=== PATIENT | male | born 1970 | race American Indian/Alaskan Native ===

== ENCOUNTER 2018-12-14 13:10 | Emergency (ER) | payer OTHER ==
--- NOTE | 2018-12-14 13:55 | Emergency Department Report ---
Chief Complaint: Fall Stated Complaint: FEET PAIN Time Seen by Provider: 12/14/18 13:53 - HPI History of Present Illness: pt presents with right foot pain and left heel pain three days ago edema of the right foot states he fell down the steps inside the house able to ambulate afterwards, does have pain with weight bearing no previous injury able to move all digits no numbness, no weakness been taking advil no PMHx no medications on a daily basis no drug allergies (+) marijuana (+) drinker no cigarettes MSE screening note: Focused history and physical exam performed. Due to findings the following was ordered: XR right foot and left foot ED Disposition for MSE Condition: Stable
--- NOTE | 2018-12-14 15:16 | XRay Report ---
BILATERAL FEET, 3 VIEWS History: Fall, left heel pain. Findings: Only 3 images of the right foot are presented which demonstrate comminuted fractures of the fourth and fifth metatarsals. The remaining bony structures of the right foot are intact. No joint pathology is appreciated. Impression: Comminuted fractures of of right metatarsals 4 and 5.
[2018-12-14] MEDS ORDERED: NORCO 5/325 PO ONE (16:03)
--- NOTE | 2018-12-14 16:03 | Emergency Department Report ---
HPI - General Chief Complaint: Fall Time Seen by Provider: 12/14/18 13:53 - HPI HPI: 48-year-old -[place] male pt reports he tripped fell down 12 steps at home x3 days ago and injured Rt foot pain, and Lt. heel after fall. denies any head injury. denies any LOC. reports pain w/ weight bearing activity, and Rt foot swelling ED Past Medical Hx - Past Medical History Hx Hypertension: Yes Hx GERD: Yes - Surgical History Past Surgical History?: No - Social History Smoking Status: Never Smoker Substance Use Type: Marijuana - Medications Home Medications: Home Medications Medication Instructions Recorded Confirmed Last Taken Type HYDROcodone/ACETAMINOPHEN 1 each PO Q6H PRN 07/11/18 07/11/18 Unknown History [Hydrocodone-Acetamin 5-325 mg] Tizanidine HCl [Zanaflex] 4 mg PO Q8H 07/11/18 07/11/18 Unknown History amLODIPine [Norvasc] 5 mg PO DAILY 07/11/18 07/11/18 Unknown History Gabapentin [Neurontin] 300 mg PO Q8HR #45 capsule 07/14/18 Unknown Rx Pantoprazole [Protonix TAB] 40 mg PO QDAY #14 tablet 07/14/18 Unknown Rx Cyclobenzaprine [Flexeril 10 MG 10 mg PO TID PRN #14 tablet 12/14/18 Unknown Rx TAB] ED Review of Systems ROS: Stated complaint: FEET PAIN Other details as noted in HPI Comment: All other systems reviewed and negative Constitutional: denies: see HPI, chills Eyes: denies: eye pain ENT: denies: ear pain, throat pain Respiratory: denies: see HPI, cough, orthopnea Cardiovascular: denies: chest pain, palpitations, dyspnea on exertion Endocrine: denies: excessive sweating Gastrointestinal: denies: abdominal pain, nausea, vomiting Musculoskeletal: joint swelling, arthralgia, myalgia Skin: denies: rash Physical Exam - Physical Exam Vital Signs: Vital Signs 12/14/18 14:12 Temperature 98.5 F Pulse Rate 102 H Respiratory 16 Rate Blood Pressure 155/80 O2 Sat by Pulse 99 Oximetry Physical Exam: Physical Exam: - General Limitations: No Limitations General appearance: alert, in no apparent distress, obese - Head Head exam: Present: atraumatic, normocephalic - Eye Eye exam: Present: normal appearance - ENT ENT exam: Present: mucous membranes moist - Neck Neck exam: Present: normal inspection - Respiratory Respiratory exam: Present: normal lung sounds bilaterally. Absent: respiratory distress - Cardiovascular Cardiovascular Exam: Present: normal rhythM. Absent: systolic murmur, diastolic murmur, rubs, gallop - GI/Abdominal GI/Abdominal exam: Present: soft, normal bowel sounds - Extremities Exam Extremities exam: Present: Bilateral feet tenderness, worse on the right. - Back Exam Back exam: Present: normal inspection - Neurological Exam Neurological exam: Present: alert, oriented X3 - Psychiatric Psychiatric exam: normal affect and mood - Skin Skin exam: Present: warm, dry, intact, normal color. Absent: rash ED Course Vital Signs 12/14/18 14:12 Temperature 98.5 F Pulse Rate 102 H Respiratory 16 Rate Blood Pressure 155/80 O2 Sat by Pulse 99 Oximetry ED Medical Decision Making - Medical Decision Making Right foot fractures, no signs of compartment syndrome, advised to follow-up with both Critical care attestation.: If time is entered above; I have spent that time in minutes in the direct care of this critically ill patient, excluding procedure time. ED Disposition Clinical Impression: Foot fracture, right Qualifiers: Encounter type: initial encounter Fracture type: closed Qualified Code(s): S92.901A - Unspecified fracture of right foot, initial encounter for closed fracture Disposition: - TO HOME OR SELFCARE Is pt being admited?: No Does the pt Need Aspirin: No Condition: Stable Instructions: Foot Fracture in Adults (ED) Prescriptions: Cyclobenzaprine [Flexeril 10 MG TAB] 10 mg PO TID PRN #14 tablet PRN Reason: Muscle Spasm Referrals: YENNY MORENO MD [Staff Physician] - 3-5 Days [place] U[facility] GALLOWAY MD [Primary Care Provider] - 3-5 Days Forms: Work/School Release Form(ED)
[2018-12-15 19:09] VITALS: BP 155/80
== END 2018-12-14 16:16 | disposition home or self-care (01) ==
LOC: ED 13:10
DX: M79.671 Pain in right foot (principal)

== ENCOUNTER 2020-10-05 10:52 | Emergency (ER) | payer SELFPAY ==
--- NOTE | 2020-10-05 11:05 | Event Note ---
ED Screening Note Date of service: 10/05/20 Time: 11:05 ED Screening Note: Pleasant 50-year-old male presents emerged department chief complaint of right upper quadrant pain over the past week. This initial assessment/diagnostic orders/clinical plan/treatment(s) is/are subject to change based on patients health status, clinical progression and re- assessment by fellow clinical providers in the ED. Further treatment and workup at subsequent clinical providers discretion. Patient/guardian urged not to elope from the ED as their condition may be serious if not clinically assessed and managed. Initial orders include: CBC, CMP, lipase, urinalysis
[2020-10-05 11:26] LABS: Basophils % (Auto) 0.9 % (0.0-1.8); Eosinophils # (Auto) 0.1 K/mm3 (0.0-0.4); Eosinophils % (Auto) 2.8 % (0.0-4.3); Hematocrit 46.6 % (35.5-45.6); Hemoglobin 15.1 gm/dl (11.8-15.2); Lymphocytes # (Auto) 1.4 K/mm3 (1.2-5.4); Lymphocytes % (Auto) 45.4 % (13.4-35.0); Mean Corpuscular HGB Conc 32 % (32-34); Mean Corpuscular Volume 84 fl (84-94); Monocytes # (Auto) 0.4 K/mm3 (0.0-0.8); Monocytes % (Auto) 12.2 % (0.0-7.3); Platelet Count 236 K/mm3 (140-440); Red Blood Count 5.57 M/mm3 (3.65-5.03)
[2020-10-05 12:39] LABS: Alanine Aminotransferase 18 units/L (7-56); BUN/Creatinine Ratio 14; Blood Urea Nitrogen 13 mg/dL (9-20); Calcium 9.6 mg/dL (8.4-10.2); Hemolysis Index 11
[2020-10-05 12:43] LABS: Bilirubin,Direct < 0.2 mg/dL (0-0.2)
[2020-10-05] MEDS ORDERED: ACETAMINOPHEN 325 MG TAB PO ONE (13:17)
[2020-10-05] MEDS ORDERED: FAMOTIDINE 20 MG TAB PO ONE (13:17)
--- NOTE | 2020-10-05 13:18 | Emergency Department Report ---
ED General Adult HPI - General Chief complaint: Abdominal Pain Stated complaint: RT SIDE PAIN PUI?: No Time Seen by Provider: 10/05/20 12:50 Source: patient, RN notes reviewed, old records reviewed Mode of arrival: Ambulatory Limitations: No Limitations - History of Present Illness Initial comments: The patient was evaluated in the emergency department for symptoms described in the history of present illness. He/she was evaluated in the context of the global COVID-19 pandemic, which necessitated consideration that the patient might be at risk for infection with the virus that causes COVID-19. Institutional protocols and algorithms that pertain to the evaluation of patients at risk for COVID-19 are in a state of rapid change based on information released by regulatory bodies including the CDC and federal and state organizations. These policies and algorithms were followed during the patient's care in the emergency department. Please note that these policies, procedures and recommendations changed on a rapid basis. The patient is a 50-year-old gentleman. He is not known to myself previously. He does not have a local primary care doctor. He cannot recall who his oncologist, and urologist are. He has a history of prostate cancer, reportedly cured with radiation therapy 3 years ago, and hypertension. He otherwise denies a history of abdominal surgery. Patient presents to the ER with 1 week of intermittent right upper quadrant abdominal pain. The pain increases with palpation. It does not radiate anywhere. It is not associated with food. No nausea, vomiting, chest pain or shortness of breath. No surgery, leg pain, leg swelling, DVT or pulmonary embolism risk factors. No loss of taste or smell. No urinary symptoms. No cough, loss of taste or smell. No exertional shortness of breath. The pain is not pleuritic. The pain increases with palpation. His pain is intermittent, sometimes gets very intense, and other times becomes mild. He currently rates his pain as a 5 out of 10. He indicates he is fairly comfortable at this time. Patient indicates he is recently modified his diet, to avoid consumption of fatty foods, and he indicates that he is "drinking a lot of water, and eating a lot of vegetables." -: Gradual, days(s) Location: abdomen Radiation: non-radiation Quality: aching Consistency: intermittent, other (As per history of present illness) Improves with: other (Per history of present illness) Worsens with: other (Per history of present illness) - Related Data Home Medications Medication Instructions Recorded Confirmed Last Taken amLODIPine 5 mg PO DAILY 07/11/18 07/11/18 Unknown Previous Rx's Medication Instructions Recorded Last Taken Type Gabapentin 300 mg PO Q8HR #45 capsule 07/14/18 Unknown Rx Pantoprazole [Protonix TAB] 40 mg PO QDAY #14 tablet 07/14/18 Unknown Rx Acetaminophen [Non-Aspirin Extra 500 mg PO Q6HR PRN #30 tablet 10/05/20 Unknown Rx Strength] Pantoprazole [Protonix TAB] 20 mg PO QDAY #30 tablet. 10/05/20 Unknown Rx Allergies Allergy/AdvReac Type Severity Reaction Status Date / Time No Known Allergies Allergy Verified 07/11/18 11:37 ED Review of Systems ROS: Stated complaint: RT SIDE PAIN Other details as noted in HPI Constitutional: denies: fever Eyes: denies: eye discharge, vision change ENT: denies: epistaxis Respiratory: denies: cough, shortness of breath Cardiovascular: denies: chest pain Gastrointestinal: denies: vomiting Genitourinary: denies: dysuria Musculoskeletal: denies: back pain Neurological: denies: weakness Hematological/Lymphatic: denies: easy bleeding ED Past Medical Hx - Past Medical History Hx Hypertension: Yes Hx GERD: Yes Hx of Cancer: Yes (Prostate) - Social History Smoking Status: Never Smoker Substance Use Type: Marijuana - Medications Home Medications: Home Medications Medication Instructions Recorded Confirmed Last Taken Type amLODIPine 5 mg PO DAILY 07/11/18 07/11/18 Unknown History Gabapentin 300 mg PO Q8HR #45 capsule 07/14/18 Unknown Rx Pantoprazole [Protonix TAB] 40 mg PO QDAY #14 tablet 07/14/18 Unknown Rx Acetaminophen [Non-Aspirin Extra 500 mg PO Q6HR PRN #30 tablet 10/05/20 Unknown Rx Strength] Pantoprazole [Protonix TAB] 20 mg PO QDAY #30 tablet. 10/05/20 Unknown Rx ED Physical Exam - General Limitations: No Limitations General appearance: alert, in no apparent distress - Head Head exam: Present: atraumatic, normocephalic - Eye Eye exam: Present: normal appearance, EOMI. Absent: nystagmus - ENT ENT exam: Present: normal exam, normal orophraynx, mucous membranes moist, normal external ear exam - Neck Neck exam: Present: normal inspection, full ROM. Absent: tenderness, mening ismus - Respiratory Respiratory exam: Present: normal lung sounds bilaterally. Absent: respiratory distress, wheezes, rales, rhonchi, stridor, decreased breath sounds - Cardiovascular Cardiovascular Exam: Present: regular rate, normal rhythm, normal heart sounds. Absent: bradycardia, tachycardia, irregular rhythm, systolic murmur, diastolic murmur, rubs, gallop - GI/Abdominal GI/Abdominal exam: Present: soft, tenderness, other (There is right upper quadrant tenderness to deep palpation. There is a negative Vera sign). Absent: distended, guarding, rebound, rigid, pulsatile mass - Rectal Rectal exam: Present: deferred - Extremities Exam Extremities exam: Present: normal inspection, full ROM, other (2+ pulses noted in the bilateral upper and lower extremities. There is no palpable cord. n egative Homans sign. Muscular compartments are soft. The pelvis is stable.). Absent: pedal edema, calf tenderness - Back Exam Back exam: Present: normal inspection, full ROM. Absent: tenderness, CVA tenderness (R), CVA tenderness (L), paraspinal tenderness, vertebral tenderness - Neurological Exam Neurological exam: Present: alert, oriented X3, normal gait, other (No facial droop. Tongue midline. Extraocular movements intact bilaterally. Facial sensation intact to light touch in V1, V2, V3 distribution bilaterally. 5 and a 5 strength in 4 extremities. Sensation intact to light touch in 4 extremities.). Absent: motor sensory deficit - Psychiatric Psychiatric exam: Present: normal affect, normal mood - Skin Skin exam: Present: warm, dry, intact, normal color. Absent: rash ED Course Vital Signs 10/05/20 11:05 Temperature 98.7 F Pulse Rate 89 Respiratory 18 Rate Blood Pressure 156/87 O2 Sat by Pulse 97 Oximetry - Reevaluation(s) Reevaluation #1: 10/05/20 13:32 Differential diagnosis, including but not limited to: Renal colic, biliary colic, pneumonia, GERD, gastritis Assessment and plan: 50-year-old gentleman, who is not currently tachycardic, tachypneic or hypoxic, who is currently low risk by Wells criteria for pulmonary embolism, presenting with a primary complaint of intermittent right upper quadrant pain that increases with palpation over the past week. Patient afebrile with reassuring vital signs and appears fairly comfortable, with exception of minimal right upper quadrant tenderness to deep palpation. On my bedside ultrasound, I believe I see gallstones. Suspect biliary colic. We will treat his pain, obtain formal right upper quadrant ultrasound, x-ray of the chest, and EKG. We will treat the patient's symptoms. We will reassess once his data points have resulted. I have discussed this plan of care with the patient, who verbalized understanding. 10/05/20 14:53 Reassessed. Feels improved. No abdominal pain or tenderness. Playing on his cellular phone. X-ray of the chest, right upper quadrant ultrasound unremarkable, EKG unremarkable. Patient states he is ready for discharge. Return precautions are reviewed. ED Medical Decision Making - Lab Data Result diagrams: 10/05/20 11:08 10/05/20 11:08 Lab Results 10/05/20 10/05/20 Range/Units 11:08 11:08 WBC 3.1 L (4.5-11.0) K/mm3 RBC 5.57 H (3.65-5.03) M/mm3 Hgb 15.1 (11.8-15.2) gm/dl Hct 46.6 H (35.5-45.6) % MCV 84 (84-94) fl MCH 27 L (28-32) pg MCHC 32 (32-34) % RDW 15.0 (13.2-15.2) % Plt Count 236 (140-440) K/mm3 Lymph % (Auto) 45.4 H (13.4-35.0) % Swift % (Auto) 12.2 H (0.0-7.3) % Eos % (Auto) 2.8 (0.0-4.3) % Baso % (Auto) 0.9 (0.0-1.8) % Lymph # (Auto) 1.4 (1.2-5.4) K/mm3 Swift # (Auto) 0.4 (0.0-0.8) K/mm3 Eos # (Auto) 0.1 (0.0-0.4) K/mm3 Baso # (Auto) 0.0 (0.0-0.1) K/mm3 Seg Neutrophils % 38.7 L (40.0-70.0) % Seg Neutrophils # 1.2 L (1.8-7.7) K/mm3 Sodium 149 H (137-145) mmol/L Potassium 4.2 (3.6-5.0) mmol/L Chloride 107.2 H (98-107) mmol/L Carbon Dioxide 31 H (22-30) mmol/L Anion Gap 15 mmol/L BUN 13 (9-20) mg/dL Creatinine 0.9 (0.8-1.3) mg/dL Estimated GFR > 60 ml/min BUN/Creatinine Ratio 14 % Glucose 85 (75-100) mg/dL Calcium 9.6 (8.4-10.2) mg/dL Total Bilirubin 0.60 (0.1-1.2) mg/dL Direct Bilirubin < 0.2 (0-0.2) mg/dL Indirect Bilirubin 0.4 mg/dL AST 29 (5-40) units/L ALT 18 (7-56) units/L Alkaline Phosphatase 56 (35-129) units/L Total Protein 7.3 (6.3-8.2) g/dL Albumin 5.0 (3.9-5) g/dL Albumin/Globulin Ratio 2.2 % Lipase 31 (13-60) units/L - EKG Data -: EKG Interpreted by Ak EKG shows normal: sinus rhythm Rate: normal - EKG Data 10/05/20 14:12 Sinus rhythm, 74 bpm. Normal axis, normal intervals, left ventricular hypertrophy. Abnormal EKG, not a STEMI - Radiology Data Radiology results: pending, report reviewed, image reviewed X-ray of the chest is negative for acute disease. Right upper quadrant ultrasound is negative for acute disease. Critical care attestation.: If time is entered above; I have spent that time in minutes in the direct care of this critically ill patient, excluding procedure time. ED Disposition Clinical Impression: Right upper quadrant abdominal pain Disposition: DC-01 TO HOME OR SELFCARE Is pt being admited?: No Does the pt Need Aspirin: No Condition: Stable Additional Instructions: Avoid consumption of Motrin, ibuprofen, Naprosyn, Aleve, heavy and spicy foods, alcohol and tobacco. Take the pain medications as needed and directed. Follow-up with a primary care doctor within the next week. Please return to the emergency room right away with new pain, worsened pain, migration of pain, projectile vomiting, change in mental status, confusion, inability to tolerate liquid feeds, shortness of breath, chest pain, or any new, worsened or different symptoms not present on the initial emergency room evaluation. Referrals: MARCIAL GALVEZ MD [Staff Physician] - 3-5 Days [facility] [Provider Group] - 3-5 Days
[2020-10-05 13:58] LABS: Bilirubin,Urine NEG (Negative); Blood,Urine NEG (Negative); Color,Urine Yellow (Yellow); Mucus,Urine 2+ /HPF; RBC,Urine < 1.0 /HPF (0.0-6.0)
--- NOTE | 2020-10-05 14:31 | XRay Report ---
CHEST 2 VIEWS INDICATION: right lower thorax pain. COMPARISON: None FINDINGS: Support devices: None. Heart: Within normal limits. Lungs/pleura: No acute air space or interstitial disease. No pneumothorax. Additional findings: None. IMPRESSION: Unremarkable chest films. No clear explanation for right lower thorax pain. Signer Name: Rafael Rai Jr, MD Signed: 10/05/2020 2:27 PM Workstation Name: [id number]
--- NOTE | 2020-10-05 14:35 | Ultrasound Report ---
ULTRASOUND ABDOMEN, LIMITED (RIGHT UPPER QUADRANT) INDICATION / CLINICAL INFORMATION: ruq pain. COMPARISON: None available. FINDINGS: PANCREAS: Visualized portion shows no significant abnormality. LIVER: No significant abnormality. GALLBLADDER: No significant abnormality. BILE DUCTS: No significant abnormality. Common bile duct measures 2 mm. FREE FLUID: None. ADDITIONAL FINDINGS: None. IMPRESSION: 1. No significant sonographic abnormality of the right upper quadrant. Signer Name: Xavi Quiroga MD Signed: 10/05/2020 2:31 PM Workstation Name: [id number]
[2020-10-05 15:18] VITALS: BP 142/78
== END 2020-10-05 15:10 | disposition home or self-care (01) ==
LOC: ED 10:52
DX: R10.11 Right upper quadrant pain (principal); I10 Essential (primary) hypertension; K21.9 Gastro-esophageal reflux disease without esophagitis; Z79.899 Other long term (current) drug therapy
CPT/HCPCS: 36415; 71046; 76705; 80048; 80076; 81001; 83690; 85025; 93005